=== PATIENT | female | born 1995 | race Two or more races ===

== ENCOUNTER 2019-03-09 10:43 | Emergency (ER) | payer MEDICAID ==
[~2019-03-09] VITALS: Ht 162.6 cm; Wt 80.7 kg
--- NOTE | 2019-03-09 10:58 | NUR ---
TO ER BED 7. AAOX4. NAD. CAME WITH C/O L RIB PAIN S/P FALL X 1 WEEK AGO. TAKING TYLENOL AND IBUPROPHEN W/O RELIEF. AWAITNG MD GALLOWYA. URINE SPECIMEN COLLECTED
--- NOTE | 2019-03-09 11:46 | NUR ---
CALLED XRAY. UPREG NEGATIVE
--- NOTE | 2019-03-09 12:46 | NUR ---
Patient discharged to home in stable condition. Written and verbal after care instructions given. Patient verbalizes understanding of instruction.
[2019-03-09 12:47] VITALS: BP 122/76
== END 2019-03-09 12:49 | disposition home or self-care (01) ==
LOC: ER 10:46
DX: S20.212A Contusion of left front wall of thorax, initial encounter (principal); F17.200 Nicotine dependence, unspecified, uncomplicated; W18.39XA Other fall on same level, initial encounter; Y93.39 Activity, other involving climbing, rappelling and jumping off; Y92.89 Other specified places as the place of occurrence of the external cause; Y99.8 Other external cause status
CPT/HCPCS: 71100-TC; 84703-TC

== ENCOUNTER 2020-05-21 15:19 | Emergency (ER) | payer MEDICAID ==
[~2020-05-21] VITALS: Ht 162.6 cm; Wt 81.6 kg
--- NOTE | 2020-05-21 15:40 | NUR ---
patient came in to the er c/o left ankle pain s/p fell off her skateboard yesterday. On room air, breathing evenly and unlabored. kept comfortable, will continue to monitor accordingly.
[2020-05-21 16:11] VITALS: BP 118/81
--- NOTE | 2020-05-21 16:11 | NUR ---
Patient discharged to home in stable condition. Written and verbal after care instructions given. Patient verbalizes understanding of instruction.
== END 2020-05-21 16:11 | disposition home or self-care (01) ==
LOC: ER 15:19
DX: S93.492A Sprain of other ligament of left ankle, initial encounter (principal); V00.131A Fall from skateboard, initial encounter; Y93.51 Activity, roller skating (inline) and skateboarding; Y92.89 Other specified places as the place of occurrence of the external cause; Y99.8 Other external cause status
CPT/HCPCS: 73610-TC

== ENCOUNTER 2024-05-27 17:21 | Emergency (ER) | payer MEDICAID ==
[~2024-05-27] VITALS: Ht 162.6 cm; Wt 97.5 kg
[2024-05-27 17:28] VITALS: BP 136/72; TEMP 98
[2024-05-27] MEDS ORDERED: SILV50CR32 TP (18:00)
[2024-05-27 18:21] VITALS: O2SAT 98
== END 2024-05-27 18:33 | disposition home or self-care (01) ==
LOC: ER 17:21
DX: T22.212A Burn of second degree of left forearm, initial encounter (principal); F17.200 Nicotine dependence, unspecified, uncomplicated; X10.2XXA Contact with fats and cooking oils, initial encounter; Y93.G3 Activity, cooking and baking; Y92.098 Other place in other non-institutional residence as the place of occurrence of the external cause; Y99.8 Other external cause status

== ENCOUNTER 2024-12-19 03:22 | Emergency (ER) | payer BC ==
[~2024-12-19] VITALS: Ht 162.6 cm; Wt 86.2 kg
[~2024-12-19 03:22] MED LIST: SILV50CR32 TP
[2024-12-19 04:25] LABS: BASOPHILS % (AUTO) 0.4 % (0.0-2.0); EOSINOPHILS % (AUTO) 0.5 % (0.0-6.0); HEMATOCRIT 37 % (33-45); HEMOGLOBIN 12.6 g/dL (11.5-14.8); LYMPHOCYTES # (AUTO) 2.4 K/uL (0.8-4.8); LYMPHOCYTES % (AUTO) 25.7 % (20.0-44.0); MEAN CORPUSCULAR HEMOGLOBIN 29 PG (26.0-33.0); MEAN CORPUSCULAR HGB CONC 34 g/dl (31.0-36.0); MEAN CORPUSCULAR VOLUME 86 fL (82-100); MONOCYTES # (AUTO) 0.4 K/uL (0.1-1.30); MONOCYTES % (AUTO) 4.2 % (2.0-12.0); NEUTROPHILS # (AUTO) 6.4 K/uL (1.8-8.9); NEUTROPHILS % (AUTO) 69.2 % (43.0-81.0); PLATELET COUNT (AUTO) 337 K/uL (150-450); RED BLOOD CELL COUNT(AUTO) 4.31 MIL/uL (4.0-5.2); RED CELL DISTRIBUTION WIDTH 12.7 % (11.5-15.0); WHITE BLOOD COUNT (AUTO) 9.2 K/uL (4.3-11.0)
[2024-12-19 04:54] LABS: CALCIUM, SERUM 8.8 mg/dL (8.5-10.1); CREATININE 0.8 mg/dL (0.6-1.3); POTASSIUM 3.9 mmol/L (3.5-5.1)
[2024-12-19 04:59] LABS: ALBUMIN 3.4 g/dL (3.4-5.0); BILIRUBIN,DIRECT 0.2 mg/dL (0.0-0.2); BILIRUBIN,TOTAL 0.4 mg/dL (0.2-1.0); TOTAL PROTEIN, SERUM 7.4 g/dL (6.4-8.2)
[2024-12-19] MEDS ORDERED: CYCL10TA9 PO (05:40)
[2024-12-19] MEDS ORDERED: ACET-73 PO (05:40)
[2024-12-19] MEDS ORDERED: IBUP-1490 PO (05:40)
[2024-12-19 05:55] LABS: APPEARANCE,URINE CLEAR (CLEAR); BILIRUBIN,URINE NEGATIVE (NEGATIVE); BLOOD, URINE TRACE-INTA Ery/uL (NEGATIVE); COLOR,URINE YELLOW (YELLOW); KETONES,URINE NEGATIVE (NEGATIVE); LEUKOCYTE ESTERASE ,URINE NEGATIVE (NEGATIVE); NITRITE, URINE NEGATIVE (NEGATIVE); PROTEIN,URINE NEGATIVE (NEGATIVE); UGLUCOSE 3+ mg/dL (NEGATIVE); UROBILINOGEN,URINE 0.2 EU/dL (0.2)
[2024-12-19 06:40] LABS: PREGNANCY TEST URINE QUAL NEGATIVE (NEGATIVE)
[2024-12-19 06:45] LABS: SQUAMOUS EPITHELIAL CELL,UR Many /HPF (None Seen)
[2024-12-19 06:48] LABS: ADD URINE CULTURE NO; BACTERIA,URINE Few /HPF (None Seen); WBC,URINE 0-2 /HPF (0-3)
[2024-12-19 06:57] VITALS: BP 133/88; TEMP 98.1; O2SAT 98
== END 2024-12-19 06:57 | disposition home or self-care (01) ==
LOC: ER 03:22
DX: R10.9 Unspecified abdominal pain (principal); M54.31 Sciatica, right side; R11.0 Nausea; I10 Essential (primary) hypertension; E11.9 Type 2 diabetes mellitus without complications; F17.200 Nicotine dependence, unspecified, uncomplicated
CPT/HCPCS: 36415; 80048-TC; 80076-TC; 81001; 84703-TC; 85025-TC